=== PATIENT | female | born 1980 | race Caucasian/White ===

== ENCOUNTER 2017-03-25 13:33 | Emergency (ER) | payer MEDICARE, MEDICAID ==
[~2017-03-25] VITALS: Ht 160 cm; Wt 72.6 kg
[~2017-03-25 13:33] MED LIST: BACTRIM DS 8001 TA1 PO; BACTRIM DS 8001 TAB PO; BENADRYL 25MG C25 MG PO; DICLOFENAC 50MG50 MG PO; IBU800 M1 PO; KEFLEX 500MG.500 MG PO; LEVOTHYROXIN0.137 M1 PO; LORTAB 5/500 501 TAB PO; MEDROL 4MG. DOSE4 MG PO; PREDNISONE 20MG20 MG PO; ROBAXIN500 M1 PO; VICODIN 5/500 T1 TAB PO; ZITHROMAX 250M250 MG PO; ZONEGRAN100 MG PO; Zofran4 MG PO
--- NOTE | 2017-03-25 14:04 | Emergency Room Report ---
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 N Clinical Suspician of Infection? N Mental Status: 1 - Regular (Normal Baseline) Sepsis Risk:Low Sepsis Risk Have you (or family members/close friends) recently traveled outside the [place]? N If Yes, where/when: Have you had exposure to infectious disease within the past month? TB? Other? Specify: Patient had a nail go through her sneaker today, had some bleeding. Ambulatory with bleeding under control. Tetanus updated in ED today. ALLERGIES Coded Allergies: No Known Allergies (03/25/17) Home Medications Active Scripts SULFAMETHOXAZOLE W/TRIMETHOPRI (Bactrim Ds Tab) 1 TABLET PO BID #20 TAB Prov: 03/10/17 DICLOFENAC SODIUM (Diclofenac 50MG) 50 MG PO BID #60 TAB Prov: 04/19/16 Methocarbamol (Robaxin) 500 MG PO BID #60 TAB Prov: 04/19/16 Reported Medications Levothyroxine Sodium (Levothyroxine 0.137MG) 0.137 MG PO DAILY #90 Zonisamide (Zonegran) 100 MG PO BID #180 History Medical History General CAD? No Angina: No [place]: No Hypertension? No Hyperlipidemia? No CHF? No DVT? No PE? No COPD? No Asthma? No Anemia? No GERD? No Gastric ulcers? No GI Bleed? No Hernia? No Thyroid Problems? Yes Hypothyroidism? Yes CVA? No Seizures? Yes Diabetes? No Renal Insuffiency? No End Stage Renal Disease? No UTI? No Stones? No BPH? No GB Disease: No Nephritic Syndrome? No Asplenia? No Hepatitis? No Sickle Cell Disease? No Arthritis? No Migraines? No Cataracts? No Glaucoma? No MRSA? Yes HIV? No TB? No Anxiety? No Depression? No Cancer? 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 Cardiovascular no peripheral edema Peripheral Pulses Pulses normal Yes Extremities normal range of motion, normal capillary refill, no pedal edema ( FROM) Neurologic alert (fully sensate toes/foot), normal exam, no motor/sensory deficits, oriented x 3 Skin sole of foot on left punctate opening, no drainage, no obvious FB, no bleeding, no swelling, no debris. Medical Decision Making LABS/Meds/Orders Pt receiving controlled substance in ED? No Results/Orders Current Medication Orders Sig/Lanny Start time Last Medication Dose Route Stop Time Status Admin Diphtheria/Pertussis/ 0.5 ML ONCE ONE 03/25 1400 DC 03/25 Tetanus Vacc IM 03/25 1401 1355 Diphtheria/Pertussis/ 0 .STK-MED ONE 03/25 1353 DC Tetanus Vacc IM Orders Procedure Date/time Status FOOT-LT-3 VIEWS 03/25 1351 Active XRAY/CT/US XRAY/CT/US XRAY foot XR interpretation by reviewed by me Xray Results normal/NAD, no fracture seen (no FB no acute findings) Departure Departure Time of Disposition 1427 Disposition DC Home or Self Care(routine) Clinical Impression Primary Impression: Puncture wound of foot, left Qualifiers: Encounter type: initial encounter Qualified Code: S91.332A - Puncture wound without foreign body, left foot, initial encounter Condition STABLE Referrals Pilo Godoy MD Patient Instructions DI for Puncture Wound Additional Instructions Augmentin, see Dr. Godoy in one to two days for wound check Discharge Counseling Counseled pt/family regarding diagnosis, test results, medications/RX, home care, follow up needs Prescriptions Current Visit Scripts Amoxicillin/Potassium Clav (Augmentin 875-125 Tablet) 1 EACH PO BID #20 TAB ED Critical Care Critical Care No at 1431
--- NOTE | 2017-03-25 14:04 | Emergency Room Report ---
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 N Clinical Suspician of Infection? N Mental Status: 1 - Regular (Normal Baseline) Sepsis Risk:Low Sepsis Risk Have you (or family members/close friends) recently traveled outside the [place]? N If Yes, where/when: Have you had exposure to infectious disease within the past month? TB? Other? Specify: Patient had a nail go through her sneaker today, had some bleeding. Ambulatory with bleeding under control. Tetanus updated in ED today. ALLERGIES Coded Allergies: No Known Allergies (03/25/17) Home Medications Active Scripts SULFAMETHOXAZOLE W/TRIMETHOPRI (Bactrim Ds Tab) 1 TABLET PO BID #20 TAB Prov: 03/10/17 DICLOFENAC SODIUM (Diclofenac 50MG) 50 MG PO BID #60 TAB Prov: 04/19/16 Methocarbamol (Robaxin) 500 MG PO BID #60 TAB Prov: 04/19/16 Reported Medications Levothyroxine Sodium (Levothyroxine 0.137MG) 0.137 MG PO DAILY #90 Zonisamide (Zonegran) 100 MG PO BID #180 History Medical History General CAD? No Angina: No [place]: No Hypertension? No Hyperlipidemia? No CHF? No DVT? No PE? No COPD? No Asthma? No Anemia? No GERD? No Gastric ulcers? No GI Bleed? No Hernia? No Thyroid Problems? Yes Hypothyroidism? Yes CVA? No Seizures? Yes Diabetes? No Renal Insuffiency? No End Stage Renal Disease? No UTI? No Stones? No BPH? No GB Disease: No Nephritic Syndrome? No Asplenia? No Hepatitis? No Sickle Cell Disease? No Arthritis? No Migraines? No Cataracts? No Glaucoma? No MRSA? Yes HIV? No TB? No Anxiety? No Depression? No Cancer? 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 Cardiovascular no peripheral edema Peripheral Pulses Pulses normal Yes Extremities normal range of motion, normal capillary refill, no pedal edema ( FROM) Neurologic alert (fully sensate toes/foot), normal exam, no motor/sensory deficits, oriented x 3 Skin sole of foot on left punctate opening, no drainage, no obvious FB, no bleeding, no swelling, no debris. Medical Decision Making LABS/Meds/Orders Pt receiving controlled substance in ED? No Results/Orders Current Medication Orders Sig/Lanny Start time Last Medication Dose Route Stop Time Status Admin Diphtheria/Pertussis/ 0.5 ML ONCE ONE 03/25 1400 DC 03/25 Tetanus Vacc IM 03/25 1401 1355 Diphtheria/Pertussis/ 0 .STK-MED ONE 03/25 1353 DC Tetanus Vacc IM Orders Procedure Date/time Status FOOT-LT-3 VIEWS 03/25 1351 Active XRAY/CT/US XRAY/CT/US XRAY foot XR interpretation by reviewed by me Xray Results normal/NAD, no fracture seen (no FB no acute findings) Departure Departure Time of Disposition 1427 Disposition DC Home or Self Care(routine) Clinical Impression Primary Impression: Puncture wound of foot, left Qualifiers: Encounter type: initial encounter Qualified Code: S91.332A - Puncture wound without foreign body, left foot, initial encounter Condition STABLE Referrals Pilo Godoy MD Patient Instructions DI for Puncture Wound Additional Instructions Augmentin, see Dr. Godoy in one to two days for wound check Discharge Counseling Counseled pt/family regarding diagnosis, test results, medications/RX, home care, follow up needs Prescriptions Current Visit Scripts Amoxicillin/Potassium Clav (Augmentin 875-125 Tablet) 1 EACH PO BID #20 TAB ED Critical Care Critical Care No at 1431
[2017-03-25] MEDS ORDERED: AUGMENTIN 875-1 EACH PO (14:30)
[2017-03-25 14:36] VITALS: BP 127/82
--- NOTE | 2017-03-25 16:02 | RADIOLOGY REPORT PS360 ---
FOOT-LT-3 VIEWS HISTORY: Pain NAIL PUNCTURE WOUND ORDERING PHYSICIAN: Nancy Hennessy MD PATIENT AGE: 36 years COMPARISON: None FINDINGS: No fracture or dislocation. No lytic or blastic change. There is normal mineralization.. The joint spaces are well-preserved. No significant degenerative/arthritic changes. No erosive changes evident. No radiopaque foreign body IMPRESSION: Negative left foot, no acute finding
== END 2017-03-25 14:37 | disposition home or self-care (01) ==
LOC: ER 13:33
DX: S91.332A Puncture wound without foreign body, left foot, initial encounter (principal); Z23 Encounter for immunization; Z87.891 Personal history of nicotine dependence; W22.8XXA Striking against or struck by other objects, initial encounter